=== PATIENT | male | born 1965 | race Caucasian/White ===

== ENCOUNTER 2017-12-09 13:09 | Inpatient (IN) | payer MEDICAID ==
[~2017-12-09] VITALS: Ht 188 cm; Wt 103.0 kg
[2017-12-09 13:42] LABS: BASOPHIL % 0.5 % (0-2); PLATELET COUNT 344 x10^3mcL (130-400); RED CELL DISTRIBUTION WIDTH 13.7 % (11.5-14.5)
[2017-12-09 14:01] LABS: CALCIUM 8.7 mg/dL (8.5-10.1); CARBON DIOXIDE 24.4 mmol/L (21-32); CHLORIDE SERUM 103 mmol/L (98-107); CREATININE SERUM 0.9 mg/dL (0.7-1.3); GFR1 > 60 mL/min; GLUCOSE SERUM 99 mg/dL (74-106); POTASSIUM SERUM 3.9 mmol/L (3.5-5.1); SODIUM SERUM 136 mmol/L (136-145)
[2017-12-09 14:07] LABS: ALBUMIN 3.9 g/dL (3.4-5.0); ALKALINE PHOSPHATASE 94 U/L (46-116); ALT/SGPT 56 U/L (16-63); AST/SGOT 23 U/L (15-37); BILIRUBIN TOTAL 0.81 mg/dL (0.20-1.00); TOTAL PROTEIN, SERUM 7.4 g/dL (6.4-8.2)
[2017-12-09 14:07] LABS: AMPHETAMINE QUAL UR NONE DETECTED (See below)
[2017-12-10] MEDS ORDERED: XAN1 PO (00:37)
[2017-12-10] MEDS ORDERED: PAXIL10 MG PO (00:38)
[2017-12-10 01:21] LABS: MAGNESIUM 2.2 mg/dL (1.8-2.4); PHOSPHOROUS 4.1 mg/dL (2.5-4.9)
[2017-12-10 01:28] LABS: T3 TOTAL 1.12 ng/mL
[2017-12-10 01:29] LABS: FREE T4 1.03 ng/dL (0.76-1.46); FREE THYROXINE INDEX 2.6 ug/dL (1.4-4.5)
[2017-12-10 01:33] LABS: CHOLESTEROL/HDL RATIO 4.7
[2017-12-10 01:34] VITALS: BP 121/82
[2017-12-10 03:45] LABS: UA SPECIFIC GRAVITY >=1.030 (1.005-1.035); microscopic required? YES; urine erythrocyte TRACE (NEGATIVE)
[2017-12-10 05:20] VITALS: BP 112/58
[2017-12-10 06:01] LABS: BASOPHIL % 0.3 % (0-2); PLATELET COUNT 330 x10^3mcL (130-400); RED CELL DISTRIBUTION WIDTH 13.6 % (11.5-14.5)
[2017-12-10 06:40] LABS: CALCIUM 8.9 mg/dL (8.5-10.1); CARBON DIOXIDE 23.6 mmol/L (21-32); CHLORIDE SERUM 102 mmol/L (98-107); CREATININE SERUM 0.8 mg/dL (0.7-1.3); GFR1 > 60 mL/min; GLUCOSE SERUM 96 mg/dL (74-106); POTASSIUM SERUM 4.3 mmol/L (3.5-5.1); SODIUM SERUM 138 mmol/L (136-145)
[2017-12-10 09:19] VITALS: BP 112/63
[2017-12-10 18:00] VITALS: BP 117/73
[2017-12-10 19:45] VITALS: BP 119/74
[2017-12-11 09:44] VITALS: BP 135/83
[2017-12-11 16:46] VITALS: BP 134/87
[2017-12-11 21:03] VITALS: BP 115/73
[2017-12-12 05:51] VITALS: BP 121/85
[2017-12-12 09:02] VITALS: BP 128/87
[2017-12-12 19:55] VITALS: BP 132/84
[2017-12-13 05:47] VITALS: BP 114/73
[2017-12-13 06:29] LABS: BASOPHIL % 0.4 % (0-2); PLATELET COUNT 338 x10^3mcL (130-400); RED CELL DISTRIBUTION WIDTH 13.3 % (11.5-14.5)
[2017-12-13 06:38] LABS: CALCIUM 8.8 mg/dL (8.5-10.1); CHLORIDE SERUM 103 mmol/L (98-107); CREATININE SERUM 0.8 mg/dL (0.7-1.3); GFR1 > 60 mL/min; GLUCOSE SERUM 103 mg/dL (74-106); POTASSIUM SERUM 3.8 mmol/L (3.5-5.1); SODIUM SERUM 135 mmol/L (136-145)
[2017-12-13 11:13] VITALS: BP 98/57
[2017-12-13 16:17] VITALS: Ht 188 cm; Wt 103.0 kg
[2017-12-13 18:14] VITALS: BP 107/57
[2017-12-13 21:34] VITALS: BP 135/85
[2017-12-14 06:01] VITALS: BP 109/65
[2017-12-14 06:22] LABS: BASOPHIL % 0.2 % (0-2); PLATELET COUNT 326 x10^3mcL (130-400); RED CELL DISTRIBUTION WIDTH 13.4 % (11.5-14.5)
[2017-12-14 06:49] LABS: CARBON DIOXIDE 22.3 mmol/L (21-32); CHLORIDE SERUM 102 mmol/L (98-107); CREATININE SERUM 0.9 mg/dL (0.7-1.3); GFR1 > 60 mL/min; GLUCOSE SERUM 106 mg/dL (74-106); POTASSIUM SERUM 3.8 mmol/L (3.5-5.1); SODIUM SERUM 136 mmol/L (136-145)
[2017-12-14 10:06] VITALS: BP 124/80
[2017-12-14 13:21] VITALS: BP 100/63
[2017-12-14 17:47] VITALS: BP 107/66
[2017-12-14 18:31] VITALS: BP 107/66
== END 2017-12-14 19:00 | DRG 751 ==
LOC: ED 13:09 → MU 12-10 00:30
PROVIDERS: Emergency Medicine; Family Medicine; Internal Medicine
DX: F33.2 Major depressive disorder, recurrent severe without psychotic features (principal); N17.0 Acute kidney failure with tubular necrosis; R45.851 Suicidal ideations; F41.1 Generalized anxiety disorder; E78.5 Hyperlipidemia, unspecified; F10.10 Alcohol abuse, uncomplicated; Z68.35 Body mass index [BMI] 35.0-35.9, adult; Y90.9 Presence of alcohol in blood, level not specified
CPT/HCPCS: 84439; G0480; J0696; J2060; J3486; J7030